=== PATIENT | male | born 1945 | race Two or more races ===

== ENCOUNTER 2016-08-05 08:43 | Emergency (ER) | payer MEDICAID ==
[~2016-08-05] VITALS: Ht 162.6 cm; Wt 59.0 kg
--- NOTE | 2016-08-05 08:43 | NUR ---
PT BIBA TO BED 3 AT THIS TIME.
[2016-08-05 08:50] VITALS: BP 112/74
--- NOTE | 2016-08-05 08:50 | NUR ---
70M BIBA C/O ALOC; PER EMS, PT FOUND FOUND LYING UNDER A TREE BETWEEN [address]; PT A&OX3 TO SELF, SITUATION, AND PLACE, BUT NOT TIME; PT NOTED W/ TACHYCARDIA ON THE MONITOR; PT C/O LEFT KNEE PAIN, [place], 08/29; STATES "IT'S BEEN HURTING FOR MONTHS AND I DON'T KNOW WHY"; DENIES TRAUMA OR INJURY TO SITE AT THIS TIME; BL LUNG SOUNDS CLEAR, RR EVEN/UNLABORED, SKIN IS WARM/DRY/INTACT AT THIS TIME; PT DENIES N/V/D AT THIS TIME; PT PLACED IN GOWN AND ON MONITOR, RESTING IN BED W/ HOB ELEVATED AND IN LOWEST POSITION; POSITIONED FOR COMFORT; ER MD MADE AWARE OF STATUS. WILL CONTINUE TO MONITOR.
--- NOTE | 2016-08-05 09:00 | NUR ---
ER MD DR. DELCID EVALUATING PT AT BEDSIDE.
--- NOTE | 2016-08-05 09:14 | NUR ---
FOOD TRAY PROVIDED TO PT AT THIS TIME.
--- NOTE | 2016-08-05 10:22 | NUR ---
Patient appears to be resting comfortably in bed. Vital Signs within normal limits. Respirations even and unlabored. WILL CONTINUE TO MONITOR.
[2016-08-05] MEDS ORDERED: CALCIUM CARB 600 MG TAB PO STA (10:39)
[2016-08-05 11:10] VITALS: BP 113/70
--- NOTE | 2016-08-05 11:10 | NUR ---
Patient discharged with v/s stable. Written and verbal after care instructions given and explained. Patient verbalized understanding. Ambulatory with . All questions addressed prior to discharge. Advised to follow up with PMD.
== END 2016-08-05 11:10 | disposition home or self-care (01) ==
LOC: MED 08:43
DX: F10.129 Alcohol abuse with intoxication, unspecified (principal); E83.51 Hypocalcemia